=== PATIENT | male | born 1960 | race Caucasian/White ===

== ENCOUNTER → 2017-04-09 | Outpatient (POV) | payer MEDICAID, SELFPAY | PROVIDERS: Visit Provider Podiatrist ==

== ENCOUNTER → 2017-04-30 10:56 | Outpatient (POV) | payer MEDICAID, SELFPAY | PROVIDERS: Visit Provider Podiatrist | DX: Z00.00 Encounter for general adult medical examination without abnormal findings (principal) ==

== ENCOUNTER → 2017-05-14 09:20 | Outpatient (POV) | payer MEDICAID, SELFPAY ==
--- NOTE | 2017-05-14 09:29 | XR_ITS ---
XR foot RT min 3V HISTORY: Foot pain ITS.REASON: FOOT ULCER. NON PRESSURE CHRONIC ULCER ORDERING PHYSICIAN: Lauren Shannon DPM PATIENT AGE: 57 years COMPARISON: 03/04/2017 FINDINGS: Severe hallux valgus with first metatarsophalangeal angle of 60 degrees with lateral subluxation of the proximal phalanx of the great toe and subcortical cystic changes with hypertrophy of the distal aspect of the first metatarsal. Cystic changes involving distal aspect of the first metatarsal with cortical disruption medially at least involving one cyst. Sequela from gout could cause this finding as well as subarticular cyst. There is destruction of the head of the second metatarsal with bony resorption along the medial aspect of the head of second metatarsal consistent with osteomyelitis. The proximal aspect of the proximal phalanx of the second toe is missing and could be due to postsurgical change or bony resorption from osteomyelitis. This phalanx is subluxed dorsally. Please correlate clinically. There is some soft tissue swelling in this region. Prior amputation of the mid aspect of the third and fourth metatarsals. There are osteoarthritic changes of the fifth MTP joint. IMPRESSION: 1. New lytic process involves the head of the second metatarsal consistent with osteomyelitis. 2. Destructive process/osteomyelitis versus prior surgery at the proximal aspect of the proximal phalanx of the second toe which is subluxed dorsally 3. Prior amputation of the third and fourth tarsals
== END ==
PROVIDERS: PCP Nurse Practitioner Family; Visit Provider Podiatrist
DX: L97.408 Non-pressure chronic ulcer of unspecified heel and midfoot with other specified severity (principal)
CPT/HCPCS: 73630

== ENCOUNTER → 2017-05-20 11:59 | Outpatient (CLI) | payer MEDICAID, SELFPAY ==
[2017-05-20 12:25] LABS: Basophils # 0.1 K/mm3 (0-0.2); Basophils % 0.6 % (0.1-2.0); Eosinophils # 0.5 K/mm3 (0.0-0.4); Eosinophils % 5.4 % (0.1-12.0); Hematocrit 36.4 % (42.0-52.0); Hemoglobin 11.4 g/dL (14.1-18.0); Lymphocytes # 1.1 K/mm3 (0.7-4.5); Lymphocytes % 11.2 K/mm3 (10-50); Mean Corpuscular HGB Conc 31.2 g/dL (31.8-35.4); Mean Corpuscular Hemoglobin 28.7 pg (27.0-31.2); Mean Platelet Volume 7.6 fl (7.4-10.4); Monocytes # 0.5 K/mm3 (0.1-1.0); Monocytes % 5.1 % (1.7-9.3); Neutrophils # 7.6 K/mm3 (1.8-7.8); Neutrophils % 77.8 % (37.0-80.0); Platelet Count 257 K/mm3 (142-424); Red Blood Count 3.96 M/mm3 (4.60-6.20); Red Cell Distribution Width 14.2 % (11.5-17.5); White Blood Count 9.7 K/mm3 (4.8-10.8)
--- NOTE | 2017-05-20 12:29 | XR_ITS ---
XR chest 2V HISTORY: Smoker, tobacco abuse ITS.REASON: TOBACCO USE ORDERING PHYSICIAN: Lauren Shannon DPM PATIENT AGE: 57 years COMPARISON: 01/21/2017 FINDINGS: The cardiomediastinal silhouette and pulmonary vascularity are within normal limits. COPD with chronic coarsening of the bronchovascular markings in the lung bases. No lobar consolidation or collapse. Increased density over the anterior aspect of both ribs and may be due to nipple shadows Degenerative change thoracic spine. IMPRESSION: COPD with chronic peribronchial inflammatory change. No acute finding
[2017-05-20 13:10] LABS: Hemoglobin A1C 6.1 % (0.0-7.0)
[2017-05-20 13:37] LABS: Anion Gap 9.4 mEq/L (5-15); Blood Urea Nitrogen 19 mg/dL (7-18); C-Reactive Protein 4.8 mg/L (0.0-0.9); Carbon Dioxide 30 mmol/L (21.0-32.0); Chloride 105 mmol/L (98-107); Creatinine,Serum 0.72 mg/dL (0.70-1.30); Estimated Glomerular Filt Rate 112 ml/min (>60); GFR (African American) 136 ML/MIN (>60); Glucose 149 mg/dL (74-106); Potassium 4.4 mmoL/L (3.5-5.1); Sodium 140 mmol/L (136-145)
[2017-05-20 13:52] LABS: Erythrocyte Sedimentation Rate 68 mm/hr (0-20)
== END ==
PROVIDERS: PCP Emergency Medicine; Visit Provider Podiatrist
DX: M86.9 Osteomyelitis, unspecified (principal); L03.115 Cellulitis of right lower limb; Z01.818 Encounter for other preprocedural examination
CPT/HCPCS: 36415; 71046; 80048; 83036; 85025; 85651; 86140; 93005

== ENCOUNTER 2017-05-24 09:02 | Day surgery (SDC) | payer MEDICAID, SELFPAY ==
[2017-05-24] VITALS (12 sets, daily range): BP systolic 119–150; BP diastolic 70–85; PULSE 79–90; RESP 16–20; TEMP 36.6; O2SAT 95–100; BMI 24.1
--- NOTE | 2017-05-24 | IR_ITS ---
PROCEDURE: 1. Catheter placement in the abdominal aorta 2. Abdominal aortography 3. Repositioning of the catheter in the abdominal aorta 4. Bilateral iliofemoral runoff INDICATION: 1. Peripheral artery disease 2. Claudication Gangrenous toes Informed consent was obtained prior to the procedure. COMPLICATIONS: None ESTIMATED BLOOD LOSS: Blood loss less than 10 cc. TECHNIQUE:1% lidocaine used to anesthetize the left femoral groin. The left femoral artery was accessed via the Seldinger technique. Using fluoroscopic guidance the JR4 catheter was advanced from the aorta into the right common iliac artery and then advanced into the right superficial femoral artery. There unilateral selective angiography with runoff to the foot was performed. Following this the catheter was pulled back into the right common iliac artery and angiography was performed. At the end of the procedure the patient was transferred to the postop holding area in stable condition for sheath removal ANGIOGRAPHIC RESULTS: The suprarenal abdominal aorta is normal The mesenteric arteries are normal The infrarenal abdominal aorta is mildly calcified with no focal stenosis The bilateral common iliac arteries have mild nonflow limiting disease. The bilateral internal iliac arteries are normal The right external iliac artery is normal The left external iliac artery has an eccentric 50% stenosis Bilateral profunda femoris arteries are normal The bilateral common femoral arteries have calcification with 50-60% stenoses The right superficial femoral artery has a proximal 60% calcified stenosis mid vessel 50 and 60% stenoses. At abductors canal there is an eccentric 60-70% stenosis with additional 60 and 70% stenoses in the popliteal artery. The right anterior tibialis artery has a proximal 99% stenosis and then is subtotally occluded at mid vessel while the peroneal artery is patent in the proximal to mid segment and then becomes subtotally occluded. The posterior tibialis artery is patent to midcalf and then subtotally occluded. The left superficial femoral artery has proximal 40% mid vessel 50% stenoses. There is a 90% calcified focal stenosis within the left popliteal artery. The left anterior tibialis artery is proximal patent and does supply the foot while the peroneal artery occludes just proximal to the ankle. The left posterior tibialis artery is patent and supplies the left foot Impression: 1. Peripheral artery disease as described above Plan: 1. Medical management is recommended at this time. I do not believe stenting the 6070% stenoses in the SFA and right popliteal artery while having a clinical benefit and will only produce a nidus for occlusion within the next 3-6 months. The disease below the right knee is severe diffuse and has a low clinical yield for revascularization. If patient had limb threatening ischemia I would then consider opening the vessels to allow healing however I believe medical management would be more advantageous at this time 2. Aspirin Plavix 3. LDL less than 55 with recommended physical therapy and risk factor modification for ischemic vascular disease
[2017-05-24 09:57] LABS: Basophils # 0.1 K/mm3 (0-0.2); Basophils % 0.7 % (0.1-2.0); Eosinophils # 0.4 K/mm3 (0.0-0.4); Eosinophils % 4.6 % (0.1-12.0); Hematocrit 36.6 % (42.0-52.0); Hemoglobin 11.3 g/dL (14.1-18.0); Lymphocytes # 1.4 K/mm3 (0.7-4.5); Lymphocytes % 14.8 K/mm3 (10-50); Mean Corpuscular HGB Conc 30.9 g/dL (31.8-35.4); Mean Corpuscular Hemoglobin 28.5 pg (27.0-31.2); Mean Corpuscular Volume 92.3 fl (80-94); Mean Platelet Volume 7.8 fl (7.4-10.4); Monocytes # 0.5 K/mm3 (0.1-1.0); Monocytes % 5.5 % (1.7-9.3); Neutrophils % 74.3 % (37.0-80.0); Platelet Count 242 K/mm3 (142-424); Red Blood Count 3.97 M/mm3 (4.60-6.20); White Blood Count 9.4 K/mm3 (4.8-10.8)
[2017-05-24 10:18] LABS: Anion Gap 7.3 mEq/L (5-15); Blood Urea Nitrogen 20 mg/dL (7-18); Carbon Dioxide 32 mmol/L (21.0-32.0); Chloride 102 mmol/L (98-107); Creatinine Clearance Estimated 112 mL/min (0-300); Estimated Glomerular Filt Rate 99 ml/min (>60); GFR (African American) 120 ML/MIN (>60); Glucose 107 mg/dL (74-106); Potassium 4.3 mmoL/L (3.5-5.1); Sodium 137 mmol/L (136-145)
== END 2017-05-24 15:00 | disposition home or self-care (01) ==
LOC: CATHLAB 09:05
PROVIDERS: PCP Emergency Medicine; Visit Provider Internal Medicine
DX: E11.52 Type 2 diabetes mellitus with diabetic peripheral angiopathy with gangrene (principal); I70.235 Atherosclerosis of native arteries of right leg with ulceration of other part of foot; I70.211 Atherosclerosis of native arteries of extremities with intermittent claudication, right leg; I70.221 Atherosclerosis of native arteries of extremities with rest pain, right leg; I96 Gangrene, not elsewhere classified; Z79.84 Long term (current) use of oral hypoglycemic drugs; Z72.0 Tobacco use; I12.9 Hypertensive chronic kidney disease with stage 1 through stage 4 chronic kidney disease, or unspecified chronic kidney disease; E11.22 Type 2 diabetes mellitus with diabetic chronic kidney disease; N18.9 Chronic kidney disease, unspecified; J44.9 Chronic obstructive pulmonary disease, unspecified
CPT/HCPCS: 36247; 75630; 80048; 85025; 99152; C1725; C1769; C1894; J1644; Q9966

== ENCOUNTER 2017-05-26 11:30 | Day surgery (SDC) | payer MEDICAID, SELFPAY ==
[2017-05-26 06:58] VITALS: BP 113/66; PULSE 89; RESP 18; TEMP 36.7; O2SAT 100; BMI 23.3
[2017-05-26 07:23] LABS: POC Glucose,Bedside 130 mg/dL
--- NOTE | 2017-05-26 08:45 | XR_ITS ---
XR foot RT 2V HISTORY: ITS.REASON: AMPUTATION RIGHT TOES ORDERING PHYSICIAN: Lauren Shannon DPM PATIENT AGE: 57 years COMPARISON: 05/14/2017 FINDINGS: Status post transmetatarsal amputation performed with C-arm guidance Fluoroscopy time: 6 seconds. IMPRESSION: Status post transmetatarsal amputation
--- NOTE | 2017-05-26 09:34 | XR_ITS ---
XR foot RT min 3V HISTORY: Follow-up surgery/indication ITS.REASON: post op amp ORDERING PHYSICIAN: Lauren Shannon DPM PATIENT AGE: 57 years COMPARISON: 05/14/2017 FINDINGS: There is overlying bandage artifact. There has been an interval transmetatarsal amputation of digits 1 through 5. Otherwise unremarkable. IMPRESSION: Status post transmetatarsal amputation
[2017-05-26 09:35] VITALS: BP 104/65; PULSE 87; RESP 24; TEMP 36.2; O2SAT 95
--- NOTE | 2017-05-26 09:37 | HMH.OPNOTE ---
Date of procedure: 05/26/17 Pre-op Diagnosis:: Right 2nd metatarsal osteomyelitis Right foot DM ulcer Right hallux valgus Post-op diagnosis:: same Procedure performed:: Right transmetatarsal amputation Surgeon:: Lauren Shannon DPM REFRIGERATOR CABINETMAKER:: Lc Munroe Anesthesia: MAC Estimated blood loss (mL): 20 Clinical Note:: Mr. Alvarez is a 57-year-old diabetic male who presents today for follow up of right DM ulcer. Pain reports pain to right foot. He has been changing dressing daily. He is FWB in shoe. He has not been using walker. He is still smoking 2 packs a day (hx of throat cancer). Patient presents with his sister, Jessica. He has a history of a diabetic wound that went on to a right third and fourth partial ray resection. Medical records reviewed from .. Surgery done at the [facility] this past year. Patient was septic and admitted for surgery and IV Abx. Patient is currently not wearing shoes thru Medicare's Therapeutic Shoe Program. He will need some after surgery. Discussed ulcer is being caused by overloading of the 2nd met. Prior amp of 3-4th mets is putting extra pressure and soft tissue contracture causing 1-2nd toes to drift laterally and 5th toe to drift medially. Will need custom DM shoes to accomodate deformity post op. X-rays from 03/04/17 suspicious for second metatarsal osteomyelitis, 2nd toe displaced, large hallux valgus. Post surgical changes with 1-2 and 5th toes migrating laterally and medially together over prior 3-4th partial ray resections. PRE-OP AMPUTATION/INFECTION: We discussed conservative versus surgical treatment options. Conservative treatment options include local wound care, oral and IV antibiotics, change in shoe wear, taping/padding, and off-loading. We discussed surgical intervention for amputation of the right forefoot. Patient understands that there is a chance that the foot will change shape after surgery. Patient also understands that they could have wound healing complications including delayed healing and infection. We discussed that if the wound does not heal, it is possible that they may need a more proximal amputation and could result in further loss of digits, loss of partial foot or loss of leg. We discussed the risks and benefits in great detail. Other surgical risks include: prolonged pain and swelling, further infection requiring oral or IV antibiotics, delay in healing of soft tissue or bone, nerve or blood vessel damage, CRPS/RSD, DVT, anesthesia complications, and even . Patient has medical clearance from Dr. Dawn and vascular clearance from Dr. Ford. Rx given for wheelchair and patient has a walker. Operative findings:: No purulence or malodor Right sub 2nd metatarsal ulcer, probes to 2nd metatarsal Right 2nd metatarsal erosion, soft Right foot scar tissue Operative note:: On this date and time patient was deemed an appropriate surgical candidate. With informed consent signed, the patient was taken to the operating theater. The patient was positioned supine. MAC anesthesia was induced. No tourniquet used. Right trans-metatarsal amputation: The right lower extremity was prepped and drapped in normal sterile fashion. Pre-op right ankle block given with 15 cc 0.5% marcaine plain. Attention was directed to the right foot where a 2nd met ulcer was visible. The ulcer had no signs of active purulent drainage or malodor. The third and fourth toes were previously amputated. There was plantar soft tissue contracture at this level. A fish mouth incision was mapped out around the right foot. Utilizing a 15 blade dissection was carried down sharply to the level of the bone around the MPJs, which were disarticulated from the proximal phalanx 1-2,5. The 2nd metatarsal bone was soft and crumbly and had deformity noted to it. Portion of it was cut and sent for bone culture and the other part was sent for bone biopsy for pathology. Attention was then directed to the metatarsals. Utilizing a 1
--- NOTE | 2017-05-26 09:41 | P.PN_ITS ---
[facility] Anesthesia Checklist - Patient Identification Patient Identification: Arm Band - Structural Data Admitted From: Home Planned Operative Procedure/s: transmetatarsal amputation Consent for Planned Operative Procedure(s) Verified: Yes Verified Documents: Surgical Consent, History and Physical - NPO Status Verified Time NPO: 00:00 - Additional verifications Anesthesia Reactions: No - Airway Assessment C-Spine Mobility Assessed: Yes TMJ Mobility Assessed: Yes Dentition: Edentulous - Neurological Assessment Level of Consciousness: Awake, Alert - Anesthesia Plan Anesthesia Risk discussed: Yes Anesthesia Plan: Verified ASA Class: III Anesthesia Type: MAC [facility] Anesthesia HX I have reviewed the patient's past medical history: Yes Medical History: Reports:: Aneurysm, Asthma, Cancer, Chronic Obstructive Pulmonary Disease (COPD), Diabetes Mellitus Type 2, Peripheral Vascular Disease Denies:: Cerebrovascular Accident, Diabetes Mellitus Type 1, Gastroesophageal Reflux Disease(GERD), Internal Pacemaker, Kidney Stones, Myocardial Infarction, Renal Disease, Renal Insufficiency, Seizures Other Medical History: Reports: Arthritis, Thyroid Disease. Denies: Blood Transfusion Reaction Laterality Cases: Bilateral: Tonsillectomy Other Surgeries: No: Pacemaker Amputation: Yes (3rd and 4th toe on right foot) Fractures: No Comment: toe amputation *Family Hx:: Cancer, Diabetes, Heart Attack, Stroke, Hyperlipidemia, Hypertension
--- NOTE | 2017-05-26 09:45 | P.OP_ITS ---
Date of procedure: 05/26/17 Pre-op Diagnosis:: Right 2nd metatarsal osteomyelitis Right foot DM ulcer Right hallux valgus Post-op diagnosis:: same Procedure performed:: Right transmetatarsal amputation Surgeon:: Lauren Shannon DPM ROVING MARKER:: Lc Munroe Anesthesia: MAC Estimated blood loss (mL): 20 Clinical Note:: Mr. Alvarez is a 57-year-old diabetic male who presents today for follow up of right DM ulcer. Pain reports pain to right foot. He has been changing dressing daily. He is FWB in shoe. He has not been using walker. He is still smoking 2 packs a day (hx of throat cancer). Patient presents with his sister, Jessica. He has a history of a diabetic wound that went on to a right third and fourth partial ray resection. Medical records reviewed from .. Surgery done at the [facility]. Patient was septic and admitted for surgery and IV Abx. Patient is currently not wearing shoes thru Medicare's Therapeutic Shoe Program. He will need some after surgery. Discussed ulcer is being caused by overloading of the 2nd met. Prior amp of 3- 4th mets is putting extra pressure and soft tissue contracture causing 1-2nd toes to drift laterally and 5th toe to drift medially. Will need custom DM shoes to accomodate deformity post op. X-rays from 03/04/17 suspicious for second metatarsal osteomyelitis, 2nd toe displaced, large hallux valgus. Post surgical changes with 1-2 and 5th toes migrating laterally and medially together over prior 3-4th partial ray resections. PRE-OP AMPUTATION/INFECTION: We discussed conservative versus surgical treatment options. Conservative treatment options include local wound care, oral and IV antibiotics, change in shoe wear, taping/padding, and off-loading. We discussed surgical intervention for amputation of the right forefoot. Patient understands that there is a chance that the foot will change shape after surgery. Patient also understands that they could have wound healing complications including delayed healing and infection. We discussed that if the wound does not heal, it is possible that they may need a more proximal amputation and could result in further loss of digits, loss of partial foot or loss of leg. We discussed the risks and benefits in great detail. Other surgical risks include: prolonged pain and swelling, further infection requiring oral or IV antibiotics, delay in healing of soft tissue or bone, nerve or blood vessel damage, CRPS/RSD, DVT, anesthesia complications, and even . Patient has medical clearance from Dr. Dawn and vascular clearance from Dr. Ford. Rx given for wheelchair and patient has a walker. Operative findings:: No purulence or malodor Right sub 2nd metatarsal ulcer, probes to 2nd metatarsal Right 2nd metatarsal erosion, soft Right foot scar tissue Operative note:: On this date and time patient was deemed an appropriate surgical candidate. With informed consent signed, the patient was taken to the operating theater. The patient was positioned supine. MAC anesthesia was induced. No tourniquet used. Right trans-metatarsal amputation: The right lower extremity was prepped and drapped in normal sterile fashion. Pre-op right ankle block given with 15 cc 0.5% marcaine plain. Attention was directed to the right foot where a 2nd met ulcer was visible. The ulcer had no signs of active purulent drainage or malodor. The third and fourth toes were previously amputated. There was plantar soft tissue contracture at this level. A fish mouth incision was mapped out around the right foot. Utilizing a 15 blade dissection was carried down sharply to the level of the bone around the MPJs, which were disarticulated from the proximal phalanx
[2017-05-26 09:55] VITALS: BP 105/68; PULSE 83; RESP 24; O2SAT 96
[2017-05-26 10:15] VITALS: BP 116/70; PULSE 81; RESP 24; O2SAT 96
[2017-05-26 10:28] VITALS: BP 117/69; PULSE 82; RESP 24; TEMP 36.4; O2SAT 96
[2017-05-26 11:06] VITALS: TEMP 43
--- NOTE | 2017-05-27 16:30 | SW/DCPLANNER ---
RECEIVED A CALL FROM ADMINISTRATIVE UNDERWRITER ASKING ME TO GO DOWN AND SEE THIS PATIENTS SISTER, WANDA TO SEE IF THERE ARE ANY SERVICES THEY MAY NEED FOR THIS PATIENT TO RETURN HOME.. I DID AND SHE WANTED TO KNOW IF PATIENT WOULD BE A CANDIDATE TO STAY IN THE HOSPITAL OVERNIGHT AND DISCHARGE HOME IN THE AM.. I TOLD HER THAT WAS THE DOCTORS DECISION AND I WOULD DEFINITELY LET THE ADMINISTRATIVE UNDERWRITER SHARE WITH HIS DOCTOR. SHE STATED (SISTER) THAT HE WON'T WANT TO STAY HE WILL WANT TO GO HOME AND I AM NOT ABLE TO STAY WITH HIM TONIGHT...WE TALKED ABOUT HIM BEING HOME AND WHO CARES FOR HIM AND SHE STATED HE IS OF HIS OWN MIND AND WON'T GO ANYWHERE.. SHE CHECKS ON HIM AND SEES HE HAS WHAT HE NEEDS.. I TOLD HER TO ALSO TALK TO DR AHUJA AND SEE WHAT SHE THINKS.. DR AHUJA CALLED ME AND SAID HE HAD A BLOCK AND WAS NOT UNDER ANESTHESIA, SHE DIDN'T THINK HIM GOING HOME WOULD BE A PROBLEM THAT HIS DRG IS CLEAN AND DRY ON HIS WOUND AND IT IS CLOSED AND DOES NOT NEED ANY HOME HEALTH SERVICES.. PATIENT WAS GOING TO DISCHARGE TO HOME...
== END 2017-05-26 11:36 | disposition home or self-care (01) ==
LOC: SDC 11:30
PROVIDERS: PCP Physician Assistant; Visit Provider Podiatrist
PROC: (CPT 28805; principal; 2017-05-26 07:30)
DX: E11.622 Type 2 diabetes mellitus with other skin ulcer (principal); M86.9 Osteomyelitis, unspecified; M20.11 Hallux valgus (acquired), right foot
CPT/HCPCS: 28805; 73620; 73630; 76000; 82962; 87070; 87077; 87186; 87205; 88305; 88307; 88311; 96374